=== PATIENT | male | born 1980 | race African-American/Black ===

== ENCOUNTER 2019-04-18 14:36 | Emergency (ER) | payer MEDICAID ==
[~2019-04-18] VITALS: Ht 177.8 cm; Wt 90.6 kg
--- NOTE | 2019-04-18 16:09 | NUR ---
pt asked for food and juice to "help him pee in the cup". pt provided 2 juices, water and some food.
--- NOTE | 2019-04-18 17:43 | NUR ---
PT HANDED RN URINE CUP FILED WITH COLD CLEAR FLUID THT LOOKED LIKE WATER AND WAS COLD TO THE TOUCH THROUGH CONTAINER. PT HAD A ICE FILLED WATER GLASS NEXT TO PT. PT ADVISED TO PROVIDE ANOTHER WARM SAMPLE.
[2019-04-18 18:03] VITALS: BP 128/68
--- NOTE | 2019-04-18 18:04 | NUR ---
PT REFUSED TO PROVIDE URINE SAMPLE.
== END 2019-04-18 18:16 | disposition home or self-care (01) ==
LOC: ED 15:35
DX: F29 Unspecified psychosis not due to a substance or known physiological condition (principal); F22 Delusional disorders; F25.9 Schizoaffective disorder, unspecified
CPT/HCPCS: 99284